=== PATIENT | male | born 1975 | race Caucasian/White ===

== ENCOUNTER 2024-02-28 00:18 | Emergency (ER) | payer SELFPAY ==
[2024-02-28 00:33] VITALS: TEMP 97.5; BMI 25.7
[2024-02-28 01:39] LABS: BASO % 0.4 % (0-2.0); EOS % 0.6 % (0-4.5); HEMATOCRIT 40.4 % (35.4-49); HEMOGLOBIN 13.5 GM/dL (11.7-16.9); LYMPH % 31.3 % (8-40); MCH 31.7 pg (25.7-33.7); MCHC 33.4 g/dl (32.0-35.9); MEAN CELL VOLUME 94.9 fl (80-96); MEAN PLT VOLUME 8.5 fl (7.5-11.1); MONO % 6.5 % (3.8-10.2); NEUT % 61.2 % (42.8-82.8); PLATELET COUNT 223 10^3/uL (134-434); RBC 4.26 M/mm3 (4.00-5.60); RDW 14.4 % (11.9-15.9); WHITE BLOOD COUNT 6.8 K/mm3 (4.0-10.0)
[2024-02-28] MEDS: SODIUM CHLORIDE 0.9% 500 ML INFUS.BAG IV ONE (01:51)
[2024-02-28 01:58] LABS: POTASSIUM 3.6 mmol/L (3.5-5.1)
[2024-02-28 01:59] LABS: ALBUMIN 3.6 g/dl (3.4-5.0); CALCIUM 7.9 mg/dL (8.5-10.1)
[2024-02-28 02:03] LABS: CREATININE 1.1 mg/dL (0.55-1.3)
[2024-02-28 02:04] LABS: BILIRUBIN,TOTAL 0.2 mg/dL (0.2-1); TOT PROT 6.6 g/dl (6.4-8.2)
[2024-02-28 04:30] VITALS: BP 113/67; PULSE 87; RESP 18
== END 2024-02-28 04:56 | disposition home or self-care (01) ==
LOC: JER 00:18
DX: F12.929 Cannabis use, unspecified with intoxication, unspecified (principal); R07.9 Chest pain, unspecified; R00.0 Tachycardia, unspecified; T40.715A Adverse effect of cannabis, initial encounter
CPT/HCPCS: 36415; 80053; 80307; 82550; 82553; 84484; 85025; 93005; 93010; 99284-25